=== PATIENT | male | born 1985 | race Hispanic/Latino ===

== ENCOUNTER 2018-04-29 16:17 | Inpatient (IN) | payer BC ==
[~2018-04-29] VITALS: Ht 177.8 cm; Wt 151.0 kg
[2018-04-29] MEDS ORDERED: FENTANYL CITRATE/PF 100MCG/2 ML INJ IV ONE (17:00)
[2018-04-29] MEDS ORDERED: DIATRIZOATE MEGL/DIATRIZOA SOD 30 ML BTL PO ONE ×2 (17:14→17:28)
[2018-04-29] MEDS ORDERED: CLONIDINE HCL 0.1 MG TAB PO ONE (17:15)
--- NOTE | 2018-04-29 18:36 | NUR ---
PATIENT TO ROOM 8 FROM WAITING ROOM
[2018-04-29 19:28] LABS: BASOPHILS % 0.3 % (0.0-1.0); EOSINOPHILS # (AUTO) 0.1 (0.0-0.4); EOSINOPHILS % 0.9 % (0.0-6.0); HEMATOCRIT 45.3 % (38.2-49.6); LYMPHOCYTES # (AUTO) 3.4 (1.0-3.2); LYMPHOCYTES % 21.4 % (18.0-39.1); MEAN CORPUSCULAR HEMOGLOBIN 27.6 pg (28-32); MEAN CORPUSCULAR HGB CONC 33.1 g/dL (31-35); MEAN CORPUSCULAR VOLUME 83.4 fL (81-99); MONOCYTES % 6.6 % (4.4-11.3); NEUTROPHILS % 70.2 % (38.7-80.0); PLATELET COUNT 337 x10e3/uL (140-360); RED BLOOD COUNT 5.43 x10e6/uL (4.3-5.7); RED CELL DISTRIBUTION WIDTH 13.1 % (11.7-14.4)
[2018-04-29] MEDS ORDERED: SODIUM CHLORIDE 0.9% 1000ML 1,000 ML IV STA (19:42)
[2018-04-29 19:44] LABS: ALANINE AMINOTRANSFERASE 30 IU/L (0-55); ALBUMIN 3.3 g/dL (3.5-5.0); ALBUMIN/GLOBULIN RATIO 0.6 (0.8-2.0); ALKALINE PHOSPHATASE 125 IU/L (40-150); ANION GAP 17.6 mmol/L (8-16); BLOOD UREA NITROGEN 7 mg/dL (7-26); BUN/CREATININE RATIO 7 (6-25); CALCIUM 9.9 mg/dL (8.4-10.2); CARBON DIOXIDE 20 mmol/L (22-29); CHLORIDE 96 mmol/L (98-107); CREATININE, SERUM 1.01 mg/dL (0.72-1.25); EST GLOMERULAR FILTRATION RATE > 60 ML/MIN (60-); GLUCOSE 385 mg/dL (74-118); POTASSIUM 3.6 mmol/L (3.5-5.1); SODIUM 130 mmol/L (136-145)
[2018-04-29] MEDS ORDERED: PIPER-TAZ 3.375 GM 50 ML IV ONE (19:45)
[2018-04-29] MEDS ORDERED: VANCOMYCIN 1GM/NS 250 ML 250 ML IV ONE (19:45)
--- NOTE | 2018-04-29 21:47 | Diagnostic Imaging Report ---
EXAM: CT ABDOMEN AND PELVIS with IV CONTRAST DATE: 04/29/2018 4:55 PM Time stamp on Exam: 2107 hours INDICATION: Perirectal abscess/pain COMPARISON: None TECHNIQUE: The abdomen and pelvis were scanned using a multidetector helical scanner. Coronal and sagittal reformations were obtained. Dose modulation, iterative reconstruction, and/or weight based adjustment of the mA/kV was utilized to reduce the radiation dose to as low as reasonably achievable. Routine protocol performed. IV Contrast: 100 cc Isovue-370 Oral Contrast: Gastrografin FINDINGS: LOWER THORAX: No consolidations LIVER: No masses BILIARY: The gallbladder is unremarkable. No ductal dilation. SPLEEN: No masses PANCREAS: No masses ADRENALS: No nodules KIDNEYS: Symmetric perfusion. No enhancing masses. No hydronephrosis. GI TRACT: No distention, wall thickening or evidence of obstruction. Administered oral contrast has reached the transverse colon. Normal appendix. VESSELS: Unremarkable PERITONEUM/RETROPERITONEUM: No free air or fluid LYMPH NODES: No lymphadenopathy REPRODUCTIVE ORGANS: Unremarkable BLADDER: Unremarkable SOFT TISSUES: Left pericolic gluteal skin thickening measuring approximately 3.5 x 2 x 4 cm without internal fluid. BONES: No suspicious bone lesions. IMPRESSION: Approximately 4 cm perirectal skin thickening in the left gluteal fold consistent with a phlegmon. No drainable fluid collection. No intrapelvic abnormality. Signed by: Dr. Marla Smith M.D. on 04/29/2018 9:44 PM
[2018-04-29 21:52] LABS: CLARITY,URINE HAZY (CLEAR); COLOR,URINE YELLOW (YELLOW); LEUKOCYTE ESTERASE ,URINE NEGATIVE (NEGATIVE); NITRITE,URINE NEGATIVE (NEGATIVE); PROTEIN,URINE DIPSTICK TRACE (NEGATIVE)
[2018-04-29 21:53] LABS: BILIRUBIN,URINE NEGATIVE (NEGATIVE); KETONES,URINE 3+ (NEGATIVE); URINE UROBILINOGEN 0.2 mg/dL (0.2 - 1)
[2018-04-29 21:57] LABS: BACTERIA,URINE RARE /HPF; EPITHELIAL CELLS,URINE FEW /LPF; RBC,URINE 0-5 /HPF (0-5); WBC,URINE (MAN) 0-5 /HPF (0-5)
[2018-04-29] MEDS ORDERED: JANUVIA100 MG PO (23:49)
[2018-04-29] MEDS ORDERED: COZAAR25 MG PO (23:49)
[2018-04-30] VITALS (9 sets, daily range): BP systolic 125–137; BP diastolic 73–99
[2018-04-30] MEDS ORDERED: SODIUM CHLORIDE 0.9% 1000ML 1,000 ML IV SCH (00:01)
[2018-04-30] MEDS ORDERED: DEXTROSE 50% SYRINGE 50 ML IV PRN (00:15)
[2018-04-30] MEDS ORDERED: ONDANSETRON HCL INJ 2 MG/ML VIAL IV PRN (00:15)
[2018-04-30] MEDS ORDERED: HYDROCODONE/APAP 7.5MG-325MG 1 EA TAB PO PRN (00:15)
--- OUTSIDE RECORDS SUMMARY | 2018-04-30 00:48 | XMS REPORT ---
[facility] Address Unknown Phone Unavailable Care Team Providers Care Ditch Rider Name Role Phone Edward THOMPSON Unavailable Unavailable Problems This patient has no known problems. Allergies, Adverse Reactions, Alerts This patient has no known allergies or adverse reactions. Medications This patient has no known medications. Results Test Description Test Time Test Comments Text Results Atomic Results Result Comments CT ABDOMEN/PELVIS W 2018-04-29 21:37:00 [place] [address] Patient Name: EMERITA DIAMOND MR #: [id number] : 1985 Age/Sex: 33/M Req #: [id number] Adm Physician: Ordered by: MARQUISE MARTINS DIRECTOR SOCIAL Report #: [id number] Location: ER Room/Bed: Procedure: [id number] CT/CT ABDOMEN/PELVIS W Exam Date: Exam Time: REPORT STATUS: Signed EXAM: CT ABDOMEN AND PELVIS with IV CONTRAST DATE: 04/29/2018 4:55 PM Time stamp on Exam: 2107 hours INDICATION: Perirectal abscess/pain COMPARISON: None TECHNIQUE: The abdomen and pelvis were scanned using a multidetector helical scanner. Coronal and sagittal reformations were obtained. Dose modulation, iterative reconstruction, and/or weight based adjustment of the mA/kV was utilized to reduce the radiation dose to as low as reasonably achievable. Routine protocol performed. IV Contrast: 100 cc Isovue-370 Oral Contrast: Gastrografin FINDINGS: LOWER THORAX: No consolidations LIVER: No masses BILIARY: The gallbladder is unremarkable. No ductal dilation. SPLEEN: No masses PANCREAS: No masses ADRENALS: No nodules KIDNEYS: Symmetric perfusion. No enhancing masses. No hydronephrosis. GI TRACT: No distention, wall thickening or evidence of obstruction. Administered oral contrast has reached the transverse colon. Normal appendix. VESSELS: Unremarkable PERITONEUM/RETROPERITONEUM: No free air or fluid LYMPH NODES: No lymphadenopathy REPRODUCTIVE ORGANS: Unremarkable BLADDER: Unremarkable SOFT TISSUES: Left pericolic gluteal skin thickening measuring approximately 3.5 x 2 x 4 cm without internal fluid. BONES: No suspicious bone lesions. IMPRESSION: Approximately 4 cm perirectal skin thickening in the left gluteal fold consistent with a phlegmon. No drainable fluid collection. No intrapelvic abnormality. Signed by: Dr. Misti Smith M.D. on 04/29/2018 9:44 PM Dictated By: MISTI SMITH MD 43 T ranscribed By: HANNY on 04/29/182143 COPY TO: MARQUISE MARTINS NP
--- NOTE | 2018-04-30 00:54 | NUR ---
Pt received from the ER. Pt A&O and in no apparent distress. Pt has IV fluids, no tele, and on RA. All safety measures ensured, bed alarm on, and pt call spaulding near. Pt encouraged to use call spaulding for assistance.
[2018-04-30] MEDS: PIPER-TAZ 3.375 GM 50 ML IV SCH ×4 (01:12→21:52)
[2018-04-30] MEDS ORDERED: SODIUM CHLORIDE 0.9% 50ML 50 ML ONE (04:33)
[2018-04-30] MEDS ORDERED: IOPAMIDOL 370 MG/ML 200 ML INFUS..BTL INJ ONE (04:33)
--- NOTE | 2018-04-30 06:18 | NUR ---
Perirectal area checked and ABD pad changed. Minimal drainage from wound. Pt states pain is okay and doesn't want any pain meds.
--- NOTE | 2018-04-30 07:04 | NUR ---
report given to oncoming nurse
[2018-04-30 07:27] LABS: BASOPHILS % 0.4 % (0.0-1.0); EOSINOPHILS # (AUTO) 0.2 (0.0-0.4); EOSINOPHILS % 1.5 % (0.0-6.0); HEMATOCRIT 40.7 % (38.2-49.6); HEMOGLOBIN 13.5 g/dL (14.0-18.0); LYMPHOCYTES # (AUTO) 2.7 (1.0-3.2); MEAN CORPUSCULAR HEMOGLOBIN 27.6 pg (28-32); MEAN CORPUSCULAR HGB CONC 33.2 g/dL (31-35); MEAN CORPUSCULAR VOLUME 83.1 fL (81-99); MONOCYTES # (AUTO) 0.8 (0.2-0.8); MONOCYTES % 7.1 % (4.4-11.3); NEUTROPHILS # (AUTO) 7.4 (2.1-6.9); NEUTROPHILS % 66.4 % (38.7-80.0); PLATELET COUNT 290 x10e3/uL (140-360); RED CELL DISTRIBUTION WIDTH 13.2 % (11.7-14.4)
[2018-04-30 07:51] LABS: ALANINE AMINOTRANSFERASE 23 IU/L (0-55); ALBUMIN 2.8 g/dL (3.5-5.0); ALBUMIN/GLOBULIN RATIO 0.6 (0.8-2.0); ALKALINE PHOSPHATASE 107 IU/L (40-150); ANION GAP 13.9 mmol/L (8-16); BLOOD UREA NITROGEN 6 mg/dL (7-26); BUN/CREATININE RATIO 7 (6-25); CARBON DIOXIDE 20 mmol/L (22-29); CHLORIDE 106 mmol/L (98-107); CREATININE, SERUM 0.87 mg/dL (0.72-1.25); EST GLOMERULAR FILTRATION RATE > 60 ML/MIN (60-); GLUCOSE 286 mg/dL (74-118); POTASSIUM 3.9 mmol/L (3.5-5.1); SODIUM 136 mmol/L (136-145)
[2018-04-30] MEDS: INSULIN LISPRO 100 UNIT/1 ML 3ML VIAL SQ SCH ×4 (07:56→21:19)
[2018-04-30] MEDS ORDERED: VANCOMYCIN 1GM/NS 250 ML 250 ML IV SCH (09:00)
[2018-04-30] MEDS ORDERED: ACETAMINOPHEN 325 MG TAB PO PRN (12:45)
[2018-04-30] MEDS ORDERED: ACETAMINOPHEN/CODEINE 300MG - 30MG TAB PO PRN (12:45)
--- NOTE | 2018-04-30 19:20 | NUR ---
Report received and walking rounds complete. Pt resting in bed and watching tv, in no apparent distress. All safety measures ensured and pt call spaulding near. Pt encouraged to use call spaulding for assistance.
[2018-05-01] VITALS (8 sets, daily range): BP systolic 120–154; BP diastolic 68–95
[2018-05-01] MEDS: PIPER-TAZ 3.375 GM 50 ML IV SCH ×3 (06:10→22:00)
--- NOTE | 2018-05-01 07:10 | NUR ---
Report given to oncoming nurse
--- NOTE | 2018-05-01 07:23 | Consultation ---
DATE OF CONSULTATION: May 01, 2018 REFERRING PHYSICIAN: Dr. Terry Pacheco HISTORY: Patient is a 33-year-old male with history of diabetes, presents with complaints of pain with swelling and drainage from the perianal area. Says he started to have swelling about 4 days ago and he noticed some drainage. Still has some pain and swelling, however. CT scan of the abdomen and pelvis did not reveal definite abscess, just soft tissue swelling, but he continues to have purulent drainage. Patient has not had similar problems in the past. He has not had any bleeding. He has not had any fever. PAST MEDICAL HISTORY: Significant for diabetes, hypertension, obesity. PAST SURGICAL HISTORY: He has not had previous surgery. ALLERGIES: HE HAS NO KNOWN ALLERGIES. FAMILY HISTORY: Noncontributory. SOCIAL HISTORY: The patient does not smoke cigarettes or drink alcohol. REVIEW OF SYSTEMS: As stated above. He has not had any definite fever. PHYSICAL EXAMINATION: GENERAL: The patient is awake and alert, in no distress. VITAL SIGNS: Normal. He is afebrile. HEENT: Reveals no scleral icterus. NECK: Has no masses. LUNGS: Equal breath sounds are clear bilaterally. CARDIAC: Regular rate and rhythm with no murmur. ABDOMEN: Soft. There is no tenderness, no mass. EXTREMITIES: There is no edema. : In rectal area, there is induration and swelling with purulent drainage from a small opening, which is to the right of anus posteriorly. NEUROLOGIC: Grossly intact. ASSESSMENT: A 33-year-old male with perirectal abscess, although it is draining somewhat, it has not drained adequately, and he will likely benefit from formal drainage in the operating room with possible anal fistulotomy if a fistula is identified. The procedure was explained to the patient including risks, benefits, and alternatives. He understands. He has had the opportunity to ask questions. Thank you for asking me to see Mr. Blackwood. Job#: [id number]
[2018-05-01] MEDS: INSULIN LISPRO 100 UNIT/1 ML 3ML VIAL SQ SCH ×4 (07:30→21:00)
[2018-05-01] MEDS: SITAGLIPTIN 100 MG TAB PO SCH (09:00)
[2018-05-01] MEDS: LOSARTAN POTASSIUM 25 MG TAB PO SCH (09:00)
[2018-05-01] MEDS ORDERED: NPH, HUMAN INSULIN ISOPHANE 100 UNIT/1 ML 3ML VIAL SQ ONE (09:45)
[2018-05-01] MEDS ORDERED: DEXTROSE 5%/0.45% SOD CHL 1,000 ML IV ONE (09:45)
[2018-05-01] MEDS ORDERED: BUPIVACAINE 0.5%/EPI 30 ML SDV INJ ONE (11:30)
[2018-05-01] MEDS ORDERED: INSULIN REGULAR, HUMAN 100 UNIT/1 ML 3ML VIAL ONE (11:48)
[2018-05-01] MEDS ORDERED: MORPHINE SULFATE 5 MG/ML VIAL IV PRN (12:15)
[2018-05-01] MEDS ORDERED: HYDROCODONE/APAP 5MG-325MG TAB PO PRN (12:15)
[2018-05-01] MEDS ORDERED: ONDANSETRON HCL INJ 2 MG/ML VIAL IV PRN (12:15)
[2018-05-01] MEDS ORDERED: MORPHINE SULFATE 2 MG/ML SYR ONE (12:29)
[2018-05-01] MEDS ORDERED: HYDROMORPHONE 2MG/ML 2 MG/ML ML ONE (12:34)
[2018-05-01] MEDS ORDERED: ACETAMINOPHEN 1000 MG/100 ML 100 ML IV ONE (12:43)
[2018-05-01] MEDS ORDERED: KETOROLAC TROMETHAMINE 30 MG/ML VIAL ONE (12:43)
[2018-05-01] MEDS ORDERED: MORPHINE SULFATE INJ 4 MG/ML INJ IV PRN (12:45)
--- NOTE | 2018-05-01 14:15 | Operative Report ---
DATE OF PROCEDURE: May 01, 2018 PREOPERATIVE DIAGNOSIS: Perirectal abscess. POSTOPERATIVE DIAGNOSIS: Perirectal abscess. PROCEDURE: Incision and drainage of perirectal abscess. COLLAR SETTER OVERLOCK: None. ANESTHESIA: General. INDICATIONS AND FINDINGS: Patient is a 33-year-old male who presented with complaints of pain and swelling in the perianal area, and then he developed drainage. At surgery, there was an abscess cavity in the left anterior perianal area which tracked submucosally, but no definite fistulous tract could be identified. TECHNIQUE: After adequate general anesthesia, with the patient in the lithotomy position, the perianal area was prepped and draped in sterile fashion with Betadine solution. There was a small sinus tract opening. This was probed, and some purulent fluid was drained. A sample was taken for culture and sensitivity. The open area was extended medially and laterally to provide adequate drainage. It was then probed further. There was a sinus tract which extended submucosally but no definite fistulous tract could be identified. Additional purulent fluid was drained. The abscess cavity was then irrigated with saline and inspected for hemostasis which was seen to be adequate. It was then packed open with 1/4-inch iodoform gauze and sterile dressing applied. Patient tolerated the procedure well. Estimated blood loss was 10 mL. There were no complications. All counts were correct. Patient was taken to the recovery room in satisfactory condition. Job#: [id number] cc:CAROLYN VILLEGAS M.D.
--- NOTE | 2018-05-01 14:40 | NUR ---
Recvd patient back from procedure, AAOx3, dressing in rectal area, re inforced dressing, rating pain 4/10 on surgical area, family at bedside
[2018-05-01] MEDS: SODIUM CHLORIDE 0.9% 1000ML 1,000 ML IV SCH ×2 (17:05→22:09)
[2018-05-01] MEDS ORDERED: FENTANYL CITRATE/PF 100MCG/2 ML INJ ONE (19:11)
[2018-05-01] MEDS ORDERED: MIDAZOLAM HCL 2 MG/2 ML VIAL ONE (19:11)
[2018-05-01] MEDS ORDERED: SEVOFLURANE INHAL SOLN 250 ML PEN BTL ONE (20:00)
[2018-05-01] MEDS ORDERED: PROPOFOL IV EMULSION 10 MG/ML 20 ML VIAL ONE (20:00)
[2018-05-01] MEDS ORDERED: ONDANSETRON HCL INJ 2 MG/ML VIAL ONE (20:00)
[2018-05-01] MEDS ORDERED: LIDOCAINE HCL 2% LOCAL INJ 5 ML SDV VIAL INJ ONE (20:00)
[2018-05-01] MEDS ORDERED: DEXAMETHASONE SOD PHOS INJ 4 MG/ML VIAL ONE (20:00)
--- NOTE | 2018-05-01 20:00 | NUR ---
PT IN BED, INITIAL ASSESSMENT COMPLETE, CALL LIGHT IN REACH, PT C/O PAIN TO RECTAL AREA 12/06, DRESSING CDI, PT ON RA, IV INTACT AND INFUSING, PT ALERT X 4, AMBULATES, TOLD TO CALL FOR NEEDS, VS STABLE,
[2018-05-02] VITALS: BP 140/82
[2018-05-02] MEDS: PIPER-TAZ 3.375 GM 50 ML IV SCH ×2 (05:38→13:47)
[2018-05-02] MEDS: INSULIN LISPRO 100 UNIT/1 ML 3ML VIAL SQ SCH ×2 (07:30→11:30)
[2018-05-02 07:50] VITALS: BP 138/85
[2018-05-02] MEDS: SODIUM CHLORIDE 0.9% 1000ML 1,000 ML IV SCH (08:09)
[2018-05-02] MEDS: LOSARTAN POTASSIUM 25 MG TAB PO SCH (09:16)
[2018-05-02] MEDS: SITAGLIPTIN 100 MG TAB PO SCH (09:17)
--- NOTE | 2018-05-02 09:17 | NUR ---
pt resting in bed, amb to bathroom. c/o pain but didnt want iv medication. poss dc today
[2018-05-02 09:59] VITALS: BP 138/85
[2018-05-02 11:32] VITALS: BP 129/78
--- NOTE | 2018-05-02 12:51 | NUR ---
CASE MANAGEMENT INITIAL ASSESSMENT Pollution Control Chemist to bedside to discuss plan of care with patient/family. CM/SW role and care transitions discussed. Anticipated discharge plan discussed along with duration of care. CM/SW discussed patients right to make decisions in care. CM/SW work hours given. 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 Name and number was also written on the patients whiteboard. Patient verbalized understanding of discussion. CM will follow-up with ongoing discharge and transition of care needs.
[2018-05-02] MEDS ORDERED: AUGMENTIN 875-1 EACH PO (15:15)
[2018-05-02] MEDS ORDERED: TYLENOL WITH C1 EACH PO (15:15)
[2018-05-02 15:25] VITALS: BP 125/84
--- NOTE | 2018-05-02 15:37 | NUR ---
Nutrition Screen Note RD Recommendation for Physician: -Continue ADA diet -RD has provided diabetic education during this visit -Rec referral for outpatient diabetes management Plan of Care: RD following, monitoring for tolerance and adequacy Nutrition reason for involvement: Nutrition Risk Trigger MST Primary Diagnose(s): perirectal abscess PMH: DM, HTN, obesity Ht: 70in Wt: 333lb BMI: 47.8kg/m2 IBW: 166lb RD Assessment: (05/02) Chart reviewed. Labs and meds reviewed. 33yo M, who is admitted for perirectal abscess. During my visit, pt reports good appetite with ~100% recorded PO intake. No GI complains noted. Pt is awake, alert and in no acute distress. Pt also reports of being dx with DM less than a week ago. His PCP has spoke to him about diabetic diet but no follow up with keyboard specialist for further education. Pt has made some changes in term of his diet and physical activity. RD also provided some education on CHO counting and label reading. Will continue to monitor and follow. Current Diet: ADA diet Malnutrition Evaluation (05/02) The patient does not meet criteria for a specified degree of malnutrition at this time. Will re-evaluate at follow-up as appropriate. Diet Education Needs Assessment: Diet education indicated, pt is agreeable. Learner(s): pt Barriers: n/a Cultural/Language Modifications: n/a Readiness: ready Method: explanation, handouts Topics: CHO counting for diabetes, label reading Understanding/Compliance: Understood. All questions have been answered. Nutrition Care Level: low Signed: Mariah Oleary, MS, RD, LD
== END 2018-05-02 15:58 | disposition home or self-care (01) | DRG 872 ==
LOC: ER 16:17 → ERHOLD 04-30 00:01 → IMCU 04-30 00:59
PROVIDERS: ADMIT Internal Medicine; ATTEND Internal Medicine
PROC: 0D9Q0ZX Drainage of Anus, Open Approach, Diagnostic (ICD-10-PCS; principal; 2018-05-01 10:30)
DX: A41.9 Sepsis, unspecified organism (principal); K61.1 Rectal abscess; Z68.42 Body mass index [BMI] 45.0-49.9, adult; E87.2 Acidosis; E11.9 Type 2 diabetes mellitus without complications; Z79.4 Long term (current) use of insulin; I10 Essential (primary) hypertension; E66.01 Morbid (severe) obesity due to excess calories; E11.65 Type 2 diabetes mellitus with hyperglycemia; B96.20 Unspecified Escherichia coli [E. coli] as the cause of diseases classified elsewhere; B96.1 Klebsiella pneumoniae [K. pneumoniae] as the cause of diseases classified elsewhere
CPT/HCPCS: 36415; 74177; 80053; 81001; 82948; 83605; 85025; 87071; 87075; 87186; 87205; 96374; 99284; J1100; J1885; J2001; J2250; J2270; J2405; J2543; J3370; J7030; Q9967